=== PATIENT | male | born 1980 | race Caucasian/White ===

== ENCOUNTER 2019-06-10 12:17 | Emergency (ER) | payer BC ==
--- NOTE | 2019-06-10 13:12 | EDM.PDOC ---
ED HPI GENERAL MEDICAL PROBLEM - General Chief Complaint: Eye Problems Stated Complaint: EYE RED AND PAINFUL Time Seen by Provider: 06/10/19 12:44 Source of Information: Reports: Patient, RN Notes Reviewed - History of Present Illness INITIAL COMMENTS - FREE TEXT/NARRATIVE: 38 yr old male comes in with R eye discomfort and inflamation. That started 2 days ago. He is not aware of anything getting into the eye. There has been no mattering or crusting. He dose not wear contacts. The eye was more uncomfortable and light sensative yesterday but eye is still inflamed today. He has not had to take anything for pain but does continue to feel a mild ache today. To him this does feel similar to prior flares of iritis that he has had in the past with his last flare about 6 to 8 yrs ago. Right Eye Pain Score (Numeric/FACES): 3 - Related Data Allergies Allergy/AdvReac Type Severity Reaction Status Date / Time No Known Allergies Allergy Verified 06/10/19 12:31 Home Meds: Home Meds Minocycline [Minocin] 100 mg PO DAILY 06/10/19 [History] metroNIDAZOLE [Metronidazole] 1 applic TP ASDIRECTED 06/10/19 [History] Past Medical History Other Immunologic History: iritis, roseacea, ankling spondylitis Social & Family History - Recreational Drug Use Recreational Drug Use: No ED ROS GENERAL - Review of Systems Review Of Systems: See Below Constitutional: Denies: Fever, Chills HEENT: Reports: Eye Pain (mild R eye discomfort today, was worse yesterday) Respiratory: Denies: Shortness of Breath Cardiovascular: Denies: Chest Pain GI/Abdominal: Denies: Nausea, Vomiting Musculoskeletal: Denies: Neck Pain, Shoulder Pain, Arm Pain, Joint Pain Skin: Denies: Rash Neurological: Denies: Headache ED EXAM GENERAL W FULL EYE - Physical Exam Exam: See Below General Appearance: Alert, No Apparent Distress Eye Exam: Right Eye: Conjunctival Injection, Bilateral Eye: PERRL Visual Acuity (R) 20/: 40 Visual Acuity (L) 20/: 25 Eyelids: Bilateral: Normal Appearance Cornea Exam: Bilateral: Normal Appearance Nose: Normal Inspection Throat/Mouth: Normal Inspection Head: Atraumatic. No: Facial Swelling Neck: Supple Respiratory/Chest: No Respiratory Distress Extremities: No Pedal Edema Neurological: Alert, Oriented, No Motor/Sensory Deficits Skin Exam: Warm, Dry, Normal Color Course - Vital Signs Last Recorded V/S: Last Vital Signs Temp 97.8 F 06/10/19 12:34 Pulse 70 06/10/19 12:34 Resp 15 06/10/19 12:34 BP 148/88 H 06/10/19 12:34 Pulse Ox 98 06/10/19 12:34 - Re-Assessments/Exams Free Text/Narrative Re-Assessment/Exam: 06/10/19 20:20 Slit lamp exam show no flare at this time but sx very strongly suggestive of iritis, no foreign body seen, no evidence for prior FB, discharge instr. as documented. Departure - Departure Time of Disposition: 13:09 Disposition: Home, Self-Care 01 Clinical Impression: Iritis - Discharge Information Instructions: Uveitis, [id number] Referrals: PCP,None [Primary Care Provider] - Forms: ED Department Discharge Additional Instructions: Dexamethasone 0.1 % soln, 2 drops q2 to 4 hr while awake until symptoms resolving. See your eye Dr when you get home, see Opthamologist up in [place] or [place] imediately if symptoms worsening or in 2 to 3 days if not better. Tylenol or ibuprofen if needed for discomfort.
== END 2019-06-10 13:17 | disposition home or self-care (01) ==
LOC: JD.ED 12:17
DX: H20.9 Unspecified iridocyclitis (principal)
CPT/HCPCS: 99282; 99283